=== PATIENT | female | born 1965 | race Caucasian/White ===

== ENCOUNTER 2016-12-15 13:53 | Inpatient (IN) | payer OTHER ==
[~2016-12-15] VITALS: Ht 175.3 cm; Wt 104.5 kg
[~2016-12-15 13:53] MED LIST: ALBU18HF INH; DEP500A PO; FLUT1DIS5 IH; FLUT1DIS5 ORAL; HYDR50CA3 PO; LEVO750T9 PO; PRE20 PO; QUET100T69 PO; ZLP5T PO
[2016-12-15 14:01] VITALS: BP 131/86; PULSE 88; RESP 18; O2SAT 95
--- NOTE | 2016-12-15 15:23 | ED.REPORT ---
HPI-Psychiatric Illness Date of Service Dec 15, 2016 ED Provider: Edgar Bethea MD Pt is a 51 y/o female with a history of PTSD, anxiety, depression, and a panic disorder who presents to the ED with erratic behavior. Per pt's , she has been sporadic today but has been able to talk occasionally to him. He also states that she had an episode of incontinence, after which she was able to shower after he instructed her to. After she had gotten dressed, she kept trying to leave the house but would then come right back in. The patient nods yes when asked if she is experiencing auditory and visual hallucinations. She also nods yes when asked if the voices are telling her to hurt herself and that she is afraid she will do what the voices are telling her. Pt told her to leave the house and recently told her brother that "something is coming". Last week, she told her that she was "going to hell" and would be "dismembered" but did not tell him by who. He states that most of her hallucinations are "congregational". She had previously been to the [facility] for 10 days for sensations on her body and auditory hallucinations. After being admitted, the pt was doing better, but went back into an altered mental state after being discharged. Pt's states that citalopram seems to work the best, and that her counselor stopped all other medications for her 3-4 months ago because they turn her into a "zombie". Nursing Notes Stated Complaint: MENTAL HEALTH Chief Complaint: Psychiatric Complaint Nursing Notes Reviewed: Yes Allergies: Coded Allergies: Macrolide Antibiotics (Verified Allergy, Unknown, 04/15/16) Penicillins (Verified Allergy, Unknown, 04/15/16) erythromycin base (Verified Allergy, Unknown, 04/15/16) Scheduled Divalproex DR (Depakote ) 500 Mg Tablet 500 MG PO BID Fluticasone/Salmeterol (Advair 500-50 Diskus) 1 Each Disk.w.dev 1 PUFF ORAL BID Fluticasone/Salmeterol (Advair 500-50 Diskus) 1 Each Disk.w.dev 1 PUFF IH BID Levofloxacin (Levaquin) 750 Mg Tablet 750 MG PO DAILY Prednisone (PredniSONE) 20 Mg Tablet 40 MG PO DAILY Prednisone (PredniSONE) 20 Mg Tablet 60 MG PO DAILY Quetiapine Fumarate (Quetiapine Fumarate) 100 Mg Tablet 200 MG PO DAILY Quetiapine Fumarate (Quetiapine Fumarate) 100 Mg Tablet 400 MG PO HS Scheduled PRN Albuterol Sulfate (Ventolin HFA Inhaler) 200 Puff/18 Gm Inhaler 1 PUFF INH Q4 PRN PRN For Wheezing Hydroxyzine Pamoate (HydrOXYzine Pamoate) 50 Mg Capsule 50 MG PO HS PRN PRN For Insomnia Zolpidem (Ambien) 5 Mg Tablet 5 MG PO HS PRN PRN Insomnia General Time Seen by MD: 15:22 Chief Complaint Other (erratic behavior) Hx Obtained From: Patient, Spouse Arrived By: Walk-in Onset Occurred: 5 - 8 hours ago Severity: Current: No pain currently Severity: Maximum: No pain Recent Healthcare: No recent hospitalization Similar Sx Previous: Yes Risk-Psychiatric Illness Suicide Risk Stratification RF Statements: Risk factors reviewed Past Medical History Past Medical History Anxiety - history of tactile hallucinations Panic disorder PTSD Reports: Asthma Reports: Depression Past Surgical History Bilateral carpel tunnel surgeries Exploratory laparotomy Family History Noncontributory Smoking History Former Smoker Social History Alcohol Use: Denies alcohol use Drug Use: Denies drug use Other Social History: Good social support, , Local resident Occupation Patient is no longer employed and spends a lot of her time volunteering. Ambulatory Status Independent Review of Systems Review of Systems Note: limited ROS due to patient's condition (would not verbalized answers) Psychiatric: Reports: Hallucinations, auditory, Hallucinations, visual, Suicidal ideation (no attempts) Complete sys rev & neg: except as marked. Physical Exam Initial Vital Signs Vital Signs (First) Date Time Temp Pulse Resp B/P Pulse Ox O2 Delivery O2 Flow Rate FiO2 12/15/16 14:01 36.8 88 18 131/86 95 Room Air Initial VS: Reviewed, Unavailable Extremities: Vascular intact, Neuro intact, No swelling, No tenderness Skin: Warm, Dry, No cyanosis General/Constitutional: Awake Neurologic: Oriented X3, No motor deficits Abnormal Mood/Affect: Positive: Flat affect Abnormal Thinking / Perception: Positive: Hallucinations, auditory, Hallucinations, visual No verbal responses, tracking with eyes Nods head for yes Respiratory / Chest: Breath sounds NL, Breath sounds = bilat, No respiratory distress Cardiovascular: Heart rate NL, Regular rhythm, Heart sounds NL, No murmurs Interpretation & Diagnostics Lab Results Interpretation Result Diagram: 12/15/16 1621 12/15/16 1621 Test 12/15/16 16:21 12/15/16 17:25 White Blood Count 12.8th/mm3 (3.8-10.1) Red Blood Count 5.05mil/mm3 (3.90-5.20) Hemoglobin 15.4g/dL (12.0-15.6) Hematocrit 45.7% (35.0-46.0) Mean Corpuscular Volume 90.5fL (81-100) Mean Corpuscular Hemoglobin 30.5pg (27.0-35.0) Mean Corpuscular Hemoglobin Concent 33.7% (32.0-37.0) Red Cell Distribution Width 13.0% (12.3-15.4) Platelet Count 220bil/L (150-400) Neutrophils (%) (Auto) 64.6% (40-74) Lymphocytes (%) (Auto) 24.1% (14-46) Monocytes (%) (Auto) 9.1% (4-12) Eosinophils (%) (Auto) 1.3% (0-5) Basophils (%) (Auto) 0.4% (0-3) Sodium Level 135mEq/L (134-144) Potassium Level 4.0mEq/L (3.5-5.2) Chloride Level 100mEq/L (97-108) Carbon Dioxide Level 21mmol/L (18-29) Blood Urea Nitrogen 17mg/dL (6-24) Creatinine 0.56mg/dL (0.57-1.00) Estimat Glomerular Filtration Rate 163mL/min (>59) Glucose Level 111mg/dL (60-99) Calcium Level 9.0mg/dL (8.5-10.1) Total Bilirubin 1.0mg/dL (0.0-1.2) Aspartate Amino Transf (AST/SGOT) 15U/L (0-50) Alanine Aminotransferase (ALT/SGPT) 12U/L (0-32) Alkaline Phosphatase 60U/L (25-150) Total Protein 7.4g/dL (6.4-8.4) Albumin 4.1g/dL (3.4-5.0) Thyroid Stimulating Hormone (TSH) 2.410uIU/mL (0.450-4.500) Hold Live Top Tube Received (Received) Hold Urine Received (Received) Re-Eval/Medical Decision Med Decision/Clinical Course 51 yo f h/o mood disorder psychotic features presenting with worsening psychosis over the last couple weeks per her . She has auditory hallucinations which are command which she reports are scary. She believes they may telling her to hurt herself. She is off her antipsychotics last couple of months per her psychiatric nurse. She is only on citalopram. On exam she is nonverbal but responds with nodding her head yes and no. highway worker evaluating. Care transferred to Dr. Kofi Pollock pending disposition. Source of Hx: Old records Re-Evaluation/Progress : Time of Eval: 17:52 Re-Evaluation/Progress Note: Plan for social media director to talk to patient. Discharge & Departure Shift Change Sign-Out Patient Care Transferred: Yes Discussed Complaint(s): Yes Impression: Primary Impression: Severe mood disorder with psychotic features Discharge Condition All VS Reviewed: Yes Condition: Stable Referrals: Dougie Tse MD (PCP) Care Transferred to: Dr. Pollock Care Transferred at: 18:00 Scribe Attestation Portions of this note were transcribed by Marcie Heath and Olga Vasquez. I, Dr. Bethea, personally performed the history, physical exam and medical decision-making; I reviewed and confirmed the accuracy of the information in the transcribed note. copies to: Dougie Tse MD, Ben M MD Dec 15, 2016 15:23 Marcie Heath Dec 15, 2016 15:45 Sosa Vasquez Dec 15, 2016 16:31
[2016-12-15 16:36] LABS: BASOPHILS % (AUTO) 0.4 % (0-3); EOSINOPHILS % (AUTO) 1.3 % (0-5); MONOCYTES % (AUTO) 9.1 % (4-12); Mean Corpuscular Hemoglobin 30.5 pg (27.0-35.0); Mean Corpuscular Volume 90.5 fL (81-100); NEUTROPHILS % (AUTO) 64.6 % (40-74); Platelet Count 220 bil/L (150-400)
[2016-12-15 19:23] VITALS: BP 129/86; PULSE 77; RESP 18; O2SAT 98
[2016-12-16 01:24] VITALS: BP 115/74; PULSE 87; RESP 18; O2SAT 95
[2016-12-16 09:08] VITALS: BP 122/81; PULSE 84; RESP 18; O2SAT 96
[2016-12-16 12:39] VITALS: BP 118/73; PULSE 68; RESP 18; O2SAT 95
--- NOTE | 2016-12-16 16:34 | NUR ---
Admit note. 51 y.o. female pt with dx of psychosis, admitted to the [facility] from [facility] ED at 1505. Pt was evaluated in ED and not detainable and pt's voluntary hospitalization authorized with HMA by [facility]. Pt reports that medication received from this unit during last hosp. here in March did not alleviate symptoms of being occupied by a negatively commanding entity ,but px has increased with med reduction in last few weeks and worsened to bizarre behaviour in reponse to internal stim in last five days. Pt states she initially had intrusive thoughts and heard random words that progressed into feeling that she is possessed by supernatural being that is telling her "icky things", and commanding re christianity, sexual, and homocidal instructions also threatening her if she does not carry out instrucs. Pt also reports visual hallucinations and nightmares of torture chambers, hellfire and dismembered limbs. On admit pt reporting that meds prev. prescribed made her feel as if she "couldn't think,sleep, felt like zombie" Pt pressured, anxious, seeking help, some insight re symptoms, discouraged re. med efficacy. P:CNCP
--- NOTE | 2016-12-16 18:41 | NUR ---
S Day Shift Pt admitted to the unit at approx 15:05. Pt cooperative with the admission process, but vocalizes her dissatisfaction with her bring admitted to the unit. Pt spends most of the shift watching TV/interacting with peers in the dining room, and resting/sleeping in her room. Pt is pleasant with staff and peers when active on the unit. Pt has not attended any meals at this time.
--- NOTE | 2016-12-17 04:53 | NUR ---
Nursing Noc Pt presents in common area working on puzzle or interacting with other patients and having snacks. Taking medication as prescribed. Noted to sleep thorughout the night without interruption. Continuing to monitor mood/behavior, emotional state and medication effectiveness. Q15 minute safety checks throughout the night. CP
[2016-12-17 14:54] VITALS: BP 131/83; PULSE 97; RESP 22
--- NOTE | 2016-12-17 15:32 | PCM.CHPPSY ---
Mental Health [facility] Date of Service Dec 17, 2016 Admission Date/Time Dec 16, 2016 at 15:27 Admission Status: Voluntary Primary Physician Attending Physician: Jay Farias MD Other Physician: Source of Information: Patient Interview, Chart Review Referral Agency/Hospital [facility] emergency department Chief Complaint Chief Complaint Patient is a 51-year-old female presented to the ED on 08/15/2016 by her who reported that patient has been acting erratically, having active auditory hallucination, no eye contact, flat affect. Patient presents today for evaluation and treatment of psychotic symptoms. The condition is acute, developing over the past 10 days and is at present of a moderate to severe intensity. It manifests with symptoms of ", anxiety, and auditory hallucination. Patient states an overwhelming force dwelling inside her body and communicating with her. Voice appears malignant "told me not to speak and get out of the hospital". Patient additionally has recurrent thoughts of the F word, unable to not think about the word. She has been resisting to the voices in favor of her . He told her not to listen to the voices. Patient reports that she loves her . Patient state that she was raised up as a Orthodox/Jainism family however, believe that she is in a dark place at current time. She states a dark force has reside in her for the past 7 years after she started to masturbate with an massager. This is recognizes as a sin. She carries a psychological history that includes anxiety, depression and bipolar with one episode of diego plus psychotic features back in 03/12/2016 for 10 days. Patient was discharged home on Depakote 500 mg by BID and Seroquel 200 mg in a.m. and 400 mg in the p.m. Since that time, patient was transitioned to citalopram 40 mg daily, discontinuing all of her other medication 3-4 months ago per report. Patient endorses she has not taken her medication for the past 10 days. I met with the patient for greater than 45 minutes; review the course records [facility]. Circumstances leading to admission (include presenting symptoms, severity, timing/onset) MH Presenting Symptoms: Psychosis (Days), Dementia (Days) Past Medical History Pulmonary: Asthma, Other (obstructive sleep apnea) Other Pertinent History: Obese BMI 34 Allergies Coded Allergies: Macrolide Antibiotics (Verified Allergy, Unknown, 04/15/16) Penicillins (Verified Allergy, Unknown, 04/15/16) erythromycin base (Verified Allergy, Unknown, 04/15/16) Home Medications Scheduled Divalproex DR (Depakote ) 500 Mg Tablet 500 MG PO BID Fluticasone/Salmeterol (Advair 500-50 Diskus) 1 Each Disk.w.dev 1 PUFF ORAL BID (Reported) Fluticasone/Salmeterol (Advair 500-50 Diskus) 1 Each Disk.w.dev 1 PUFF IH BID Levofloxacin (Levaquin) 750 Mg Tablet 750 MG PO DAILY Prednisone (PredniSONE) 20 Mg Tablet 40 MG PO DAILY Prednisone (PredniSONE) 20 Mg Tablet 60 MG PO DAILY Quetiapine Fumarate (Quetiapine Fumarate) 100 Mg Tablet 200 MG PO DAILY Quetiapine Fumarate (Quetiapine Fumarate) 100 Mg Tablet 400 MG PO HS Scheduled PRN Albuterol Sulfate (Ventolin HFA Inhaler) 200 Puff/18 Gm Inhaler 1 PUFF INH Q4 PRN PRN For Wheezing (Reported) Hydroxyzine Pamoate (HydrOXYzine Pamoate) 50 Mg Capsule 50 MG PO HS PRN PRN For Insomnia Zolpidem (Ambien) 5 Mg Tablet 5 MG PO HS PRN PRN Insomnia Psychiatric Treatment History Age at onset: Estimated number of hospitalizations since onset of illness: What medications/treatments have been effective: What medications/treatments have been ineffective: Outpatient Treatment History: Psychological History: Bipolar Fam Hx Mental Health Disorder: None Past Suicide Attempts MH Past Suicide Attempts: Yes Relevant History Relevant Details: Age of First Attempt: Number of Attempts: Date of Last Attempt: Hx non-suicidal Self-Injury Hx non-suicidal Self-Injury?: No Relevant History Relevant History Details: Hx Violence Towards Other Hx violence towards others?: No Past Medical History Past Medical/Surgical History Current and Past Current/Past: none reported Problem with Elimination: No Currently ?: No Hx Surgeries: Yes (BILATERAL CARPAL TUNNEL, EXPLORATORY LAP) Past Surgical History: None Family History: None Fam Hx Mental Health Disorder: None Past Social History Family: Living Arrangement: with Family Patient Education Level: 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 Dyspnea Respiratory: Reports: Wheezing, Denies: Cough, Shortness of Breath Gastrointestinal: Denies: Abdominal Pain, Nausea, Vomiting Musculoskeletal: Denies: Limitation of Function, Neck Pain Skin: Denies: Bruising, Jaundice, Rash Neurological: Denies: Dyskinesia, Seizures, Tremors, Weakness Psychologic: Denies: Agitation, Hostile, Diego, Nervousness Endocrine: Denies: Intolerent to Heat/Cold, Polydipsea, Polyuria Mental Status Exam Vital Signs Vital Signs Date Time Temp Pulse Resp B/P Pulse Ox O2 Delivery O2 Flow Rate FiO2 12/17/16 14:54 36.8 97 22 131/83 Appearance: Neat/well groomed Attitude: Cooperative Behavior: Overtly anxious Affect: Restricted Mood: Dysthymic, Fearful Thought Process/Associations: Loose, Tangential Speech Production: Normal Speech Rate: Normal Speech Articulation: Normal Thought Content: Hinduism preoccupation, Perseveration, Other (disorganized) Danger to Self/Suicidal Ideati: None Danger to Others: None Hallucinations: Auditory (Endorses, being communicating with her), Visual ( Denies) Consciousness: Alert Orientation: Person, Place, Date, Situation Memory: Grossly Intact Estimate Intellectual Function: Average Attention/Concentration & Cogn: Grossly Intact Insight: Limited Judgement: Limited Result Diagram: 12/15/16 1621 12/15/16 1621 Mental Health Plan Patient is a 51-year-old female with a medical history significant for anxiety, depression, and bipolar voluntary admission for diego with psychotic symptoms. Patient has decompensated for the past 10 days noncompliant to her medication. She has significant auditory hallucination with adventism preoccupation. She likely has an incongruent in her belief system and very poor coping skills which resulted in extreme fear and thought disorganization. Her life is negatively affected, psychological paralysis. For treatment of psychosis, patient refuses to take Seroquel she believes it causes significant drowsiness. The team therefore, we will place her on Abilify 10 mg augmented by citalopram 20 mg and consider adding Depakote 250 mg twice a day. [place] AXIS I Probable bipolar disorder, most recent episode manic with psychotic features AXIS II Deferred. AXIS III History of bilateral carpal tunnel repair. Asthma Obstructive sleep apnea AXIS IV Stressors moderate AXIS V Global Assessment of Functioning current 35 Medications Medications to address General Physical Health Citalopram 20 mg daily Abilify 10 mg dailymg Treatments 1. The patient is admitted to the [facility] on an voluntary basis. 2. Will provide a structure environment to facilitate psychological healing 3. The patient will be seen by the treatment team on a daily basis to assess for symptom side effects and response to treatment. 4. The patient will be encouraged to attend group and milieu activities. 5. Abilify 10 mg daily in addition to citalopram 20 mg daily 6. Anticipate length of stay less than 14 days Jesus Valentine DO Dec 17, 2016 15:32
--- NOTE | 2016-12-17 16:29 | NUR ---
[id number]. S: "I just want to be Rose, and get rid of this weird....they are able to get into the computer and change the information..I need to get the records of what I say because don't want to take medication that will make worse O: Pt requesting records of her tx and details of info she has provided for her MR. because she is concerned about having poor memory and states that the "evil entity/s that have being trying to control her and turn her into a bad person "I am a kind and good person" have the ability to hack into her computer info and change it. Pt noted to be placing a lot of significance on what appeared to be neutral stimuli and perseverating on the meaning of her interpretation part of the "weirdness that she is experiencing. Pt stating that celexa helps her because it keeps her more even and peaceful and stops her from getting agitated, pt states that she is concerned about being on large doses of other meds. . Pt trying to stay calm, but struggling with her concerns, pt reports that she has bruises that she cannot account for and feels that she received them from entity possibly. P:CNCP
--- NOTE | 2016-12-18 05:08 | NUR ---
nursing, nights, 11-7 s/o- has appeared to sleep after 2300 during q 15 minute assessments. a- no apparent distress. p- monitor behavior/emotional state, quality, times and amount of sleep, use and effect of medication. avani
[2016-12-18] MEDS: ARIPiprazole 10 mg Tablet PO SCH (08:30)
[2016-12-18] MEDS: Albuterol HFA 200 Puff Inhaler (Vent Pts Only) INHALATION PRN ×2 (08:59→18:14)
--- NOTE | 2016-12-18 09:32 | NUR ---
Nursing Day Pt refused her morning dose of Abilify stating "Why are they starting me on that. No one talked to me. I want to be careful about my meds. I don't want to take anything I was on before except Citalopram." Pt ate breakfast and is quietly resting in her bed she reports feeling "Fine. Thoughts pop into my but I am just trying to ignore them." Blunt affect, bizarre thoughts, appropriate behavior, responsive to staff upon approach. Continue to monitor behavior, thought process and mood.
[2016-12-18 10:18] VITALS: BP 118/71; PULSE 75; RESP 18
--- NOTE | 2016-12-18 11:54 | PCM.PNPSY ---
Subjective Date of Service Dec 18, 2016 Subjective I spent 30 minutes both revealing treatments upon with our clinic team, interviewing the patient and providing supportive/educational psychotherapy. I spent more than 50% of the time counseling the patient. I reviewed the treatment plan with the patient and discuss options available including the potential risks, benefits and side effects. Pt reports an improvement and thought organization and mood stability. Staff reports that she has been active, isolating and participating well in one-to- one and group activities. She slept 7.5hours and denies depression, manic symptoms review. Pt still admits an evil present in her body, communicating bad thoughts. In the past, patient reports that the entity told her not to communicate with humans. She denies medication side effects. She was able to identify his/her medication and what they were used to treat. Current Medications Current Medications Albuterol 2 puff Q4H PRN INHALATION Last administered on 12/18/16 08:59; Admin Dose 2 PUFF; Start 12/16/16 at 20:30 Citalopram Hydrobromide 20 mg DAILY PO Last administered on 12/18/16 08:56; Admin Dose 20 MG; Start 12/18/16 at 08:30 Citalopram Hydrobromide 40 mg DAILY PO Last administered on 12/17/16 08:09; Admin Dose 40 MG; Start 12/17/16 at 08:30; Stop 12/17/16 at 12:06; Status DC Zolpidem Tartrate 5-10 MG HS PRN PO Last administered on 12/17/16 21:32; Admin Dose 5 MG; Start 12/16/16 at 20:30 Mental Status Exam Appearance: Neat/well groomed Attitude: Cooperative Behavior: Overtly anxious Affect: Restricted Mood: Dysthymic, Fearful Thought Process/Associations: Loose, Tangential Speech Production: Normal Speech Rate: Normal Speech Articulation: Normal Thought Content: Samaritan preoccupation, Perseveration, Other Danger to Self/Suicidal Ideati: None Danger to Others: None Hallucinations: Auditory (Endorses), Visual (Denies), Tactile (Denies) Consciousness: Alert Orientation: Person, Place, Date, Situation Memory: Grossly Intact Estimate Intellectual Function: Average Attention/Concentration & Cogn: Grossly Intact Insight: Limited Judgement: Limited Result Diagram: 12/15/16 1621 12/15/16 1621 Mental Health Plan Patient is a 51-year-old female with a medical history significant for anxiety, depression, and bipolar here on a voluntary basis for diego with psychotic symptoms. Patient has decompensated for the past several days and noncompliant to her medication. She has significant auditory hallucination with congregation preoccupation. She likely has an incongruent in her belief system and very poor coping skills which resulted in extreme fear and thought disorganization. Her life is negatively affected, psychological paralysis. For treatment of psychosis, patient refuses to take Seroquel she believes it causes significant drowsiness. The team therefore, we will place her on Abilify 10 mg augmented by citalopram 20 mg and consider adding Depakote 250 mg twice a day. [place] AXIS I Probable bipolar disorder, most recent episode manic with psychotic features AXIS II Deferred. AXIS III History of bilateral carpal tunnel repair. Asthma Obstructive sleep apnea AXIS IV Stressors moderate AXIS V Global Assessment of Functioning current 35 Medications Medications to address General Physical Health Citalopram 20 mg daily Abilify 10 mg dailymg Treatments 1. The patient is admitted to the [facility] on an voluntary basis. 2. Will provide a structure environment to facilitate psychological healing 3. The patient will be seen by the treatment team on a daily basis to assess for symptom side effects and response to treatment. 4. The patient will be encouraged to attend group and milieu activities. 5. Abilify 10 mg daily in addition to citalopram 20 mg daily 6. Anticipate length of stay less than 14 days 7. CPAP for HALLIE Attending Statement I reviewed the case with and interviewed the patient and reviewed the chart records. I agree with Dr. Valentine assessment and plan for treatment. Jesus Valentine DO Dec 18, 2016 11:54 Jay Farias MD Dec 18, 2016 12:26
--- NOTE | 2016-12-18 19:10 | NUR ---
Plasterer Foreman/Counselor: S: "I cried out to God because I did something to my body and I don't want to discuss it." O: Patient slept 7 hours last night per staff. Patient denies S/I and H/I. She also denies auditory and visual hallucinations. Depression and anxiety were not rated. When asked her mood, patient stated, "Peaceful." A: Patient is cooperative, anxious, mu-ism preoccupation, fearful, loose, tangential, dysthymic, limited insight, limited judgment. P: Follow the care plan, coordinate with out-patient providers. Addendum: 12/18/16 at 192 by [facility] Patient also stated, "Something is calling me names within my being. Nobody is perfect and if your own being tells you that you are a loser, it's bad."
--- NOTE | 2016-12-18 20:54 | NUR ---
Observations 899 - 2129 Pt affect and mood was flat, anxious, isolative and times and religiously preoccupied. Pt was able to maintain behavior throughout the shift. Pt speech and eye contact was good. Pt was a little restless today. Pt attended meals in D.R. and ate about 75% of her meals. Pt attended arts and crafts and other unit activities. Pt was observed every 15 minutes through the shift as ordered. Addendum: 12/18/16 at 2100 by RGEG [facility] Pt visited with her during visitation time and it appeared to go well.
[2016-12-19] MEDS: Albuterol HFA 200 Puff Inhaler (Vent Pts Only) INHALATION PRN ×2 (00:40→09:53)
--- NOTE | 2016-12-19 06:14 | NUR ---
Nursing Note- Layboy Operator 7pm to 7am Pt watching tv in the day room at start of shift. Interacting appropriately with select peers. Eye contact fair, able to make needs known, thoughts appear linear and logical, guarded at times, endorses AH, but but reports she is managing them better. Pt went to bed at 2200, after getting ambien 5mg for sleep. Pt slept 6.5 hours. Monitored pt. q 15 minutes for safety, location, and accountability
[2016-12-19] MEDS: ARIPiprazole 10 mg Tablet PO SCH (09:02)
--- NOTE | 2016-12-19 10:33 | NUR ---
Day shift nursing note-Sleep/Appetite/Anxiety/Psychosis S/O-Pt. reported she slept well through the night. She denies SI, HI, depression, anxiety or hallucinations. She stated she feels frustrated about all the weird things that have happened but denies having weird thoughts. She tends to stay to herself on the unit. She has good appetite and is appropriate with peers and staff. She was sleepy in the morning so she ate a late breakfast. A-Psychosis. Lack of insight. Guarded, Preoccupied. P-Monitor for safety per protocol. Encourage verbalization of feelings and thoughts. Assess efficacy of meds to decrease PI.
[2016-12-19 12:50] VITALS: BP 120/76; PULSE 83; RESP 16
--- NOTE | 2016-12-19 14:54 | NUR ---
Observations 0700 - 1900 Pt affect and mood anxious, isolative, flat and withdrawn. Pt is minimally social with staff and peers. Pt was able to maintain behavior throughout the shift. Pt speech and eye contact was good. Pt attended meals in D.R. and ate about 75% of her meals. Pt is currently resting in bed with eyes closed. Pt was observed every 15 minutes through the shift as ordered.
[2016-12-19] MEDS: Fluticasone-Salmeterol 500-50 Inhaler INHALATION SCH (21:09)
[2016-12-20] MEDS: Fluticasone-Salmeterol 500-50 Inhaler INHALATION SCH ×2 (09:39→20:28)
[2016-12-20 11:30] VITALS: BP 124/79; PULSE 91; RESP 17
--- NOTE | 2016-12-20 16:54 | NUR ---
Observations 9300-7451 Pt quiet, isolative much of the day, and cooperative. Pt focused on discharge, making a comment to this television writer saying "I am not happy I am here, it's easy to get upset about it but I'm trying to stay positive. Sometimes I just like getting angry about things." Pt slept much of the morning, waking up late. Attended all meals along with Community Meeting. Pt did participate in group, coloring. She slept much of the afternoon. Good with ADLs. Pt was observed every 15 minutes of shift as directed.
[2016-12-20] MEDS: Albuterol HFA 200 Puff Inhaler (Vent Pts Only) INHALATION PRN (18:06)
--- NOTE | 2016-12-20 19:24 | PCM.PNPSY ---
Subjective Date of Service Dec 19, 2016 Subjective The patient reported that she has not felt good during her prior hospitalization but upon discharge and soon thereafter she stated "I turned into a zombie. My mind was clear that I was lethargic." She reported that she feels "pretty decent now" and stated that she was still having "good and bad sensations in a particular apartment." She did not want to go more into detail as she was concerned that unusual thoughts would be used against her. She did however reports that her thinking was "askew." She went on to state that she believed all of her problems were due to a demonic attack 5-6 years ago and that she had seen "swirly things bouncing on my legs." She denied experiencing those things now. Sleep: 6.25 hours Appetite: "Okay" Suicidal and homicidal ideation: Denies Auditory hallucinations: Denies Visual hallucinations: Denies Other Psychotic Symptoms: Paranoia and as above. Anxiety: Denies Depression: Denies Current Medications Current Medications Aripiprazole 5 mg ONCE ONCE PO Last administered on 12/19/16 14:00; Admin Dose 5 MG; Start 12/19/16 at 13:00; Stop 12/19/16 at 13:04; Status DC Aripiprazole 10 mg DAILY PO Last administered on 12/19/16 09:02; Admin Dose 10 MG; Start 12/18/16 at 08:30; Stop 12/19/16 at 13:00; Status DC Citalopram Hydrobromide 20 mg DAILY PO Last administered on 12/19/16 09:02; Admin Dose 20 MG; Start 12/18/16 at 08:30 Mental Status Exam Vital Signs Vital Signs Date Time Temp Pulse Resp B/P Pulse Ox O2 Delivery O2 Flow Rate FiO2 12/19/16 12:50 36.4 83 16 120/76 Appearance: Neat/well groomed Attitude: Cooperative Behavior: Overtly anxious Affect: Restricted Mood: Dysthymic, Fearful Thought Process/Associations: Loose, Tangential Speech Production: Normal Speech Rate: Normal Speech Articulation: Normal Thought Content: Faith preoccupation, Suspicious, Perseveration, Other Danger to Self/Suicidal Ideati: None Danger to Others: None Hallucinations: Auditory (Denies), Visual (Denies), Tactile (Denies) Consciousness: Alert Orientation: Person, Place, Date, Situation Memory: Grossly Intact Estimate Intellectual Function: Average Attention/Concentration & Cogn: Grossly Intact Insight: Limited Judgement: Limited Result Diagram: 12/15/16 1621 12/15/16 1621 Mental Health Plan Patient is a 51-year-old female with a medical history significant for anxiety, depression, and bipolar here on a voluntary basis for diego with psychotic symptoms. Patient has decompensated for the past several days and has been noncompliant with her medication. She has had recent, significant auditory hallucination with bahai preoccupation. The patient also has limited coping skills and coupled with her thought disorganization led to medication nonadherence. The patient reported that she had significant drowsiness from quetiapine and did not wish to restart this. When it was discussed that the team and previously try to reduce the dose of quetiapine she denied this. The patient was therefore placed on aripiprazole 10 mg daily with citalopram 20 mg daily with consideration of Depakote 250 mg twice daily for mood. The patient is still exhibiting significant thought disorganization and is concerned about her prolonged hospital stay. We therefore discussed increasing the aripiprazole which the patient was agreeable. [place] AXIS I Bipolar disorder, most recent episode manic with psychotic features versus schizoaffective disorder bipolar type AXIS II Deferred. AXIS III History of bilateral carpal tunnel repair. Asthma Obstructive sleep apnea AXIS IV Stressors moderate AXIS V Global Assessment of Functioning current 35 Medications Citalopram 20 mg daily Abilify 15 mg daily Treatments 1. The patient is admitted to the inpatient unit and will be provided a safe and secure environment. 2. The patient is denying current active suicidality and is not in need of a one-to-one at this time. 3. The patient is encouraged to participate with group and milieu activities. 4. The patient will be seen by the treatment team on a daily basis to assess symptoms, side effects and response to treatment. 5. The patient will be continued on as citalopram 20 mg daily for depression. 6. Abilify will be increased to 15mg daily for psychosis. 7. CPAP for AHLLIE 8. Anticipated length of stay is 10-14 days. Vasile June MD Dec 19, 2016 19:16
--- NOTE | 2016-12-20 19:27 | PCM.PNPSY ---
Subjective Date of Service Dec 20, 2016 Subjective The patient reports that her thinking is "decent". She reports that she feels that the increase in medication was "helpful". The patient was up and alert through lunch and then felt tired and stated that she wanted to take a nap. She is concerned she may have some drowsiness from aripiprazole. We discussed that if she has ongoing drowsiness tomorrow morning that moving it to bedtime may be beneficial. She also stated that she would discuss with her her progress and whether he felt she was appropriate to return home. Sleep: 6.5 hours, "really well." Appetite: "Good" Suicidal and homicidal ideation: Denies Auditory hallucinations: Denies Visual hallucinations: Denies Other Psychotic Symptoms: Mild paranoia Anxiety: Denies Depression: Denies Current Medications Current Medications Aripiprazole 5 mg ONCE ONCE PO Last administered on 12/19/16 14:00; Admin Dose 5 MG; Start 12/19/16 at 13:00; Stop 12/19/16 at 13:04; Status DC Aripiprazole 15 mg DAILY PO Last administered on 12/20/16 09:39; Admin Dose 15 MG; Start 12/20/16 at 08:30 Salmeterol Xinafoate/ Fluticasone 2 puff BID INHALATION Last administered on 09:39; Admin Dose 2 PUFF; Start 12/19/16 at 20:30 Mental Status Exam Vital Signs Vital Signs Date Time Temp Pulse Resp B/P Pulse Ox O2 Delivery O2 Flow Rate FiO2 12/20/16 11:30 36.1 91 17 124/79 Appearance: Neat/well groomed Attitude: Cooperative Behavior: Overtly anxious Affect: Restricted Mood: Dysthymic, Fearful Thought Process/Associations: Goal Directed Speech Production: Normal Speech Rate: Normal Speech Articulation: Normal Thought Content: Suspicious (mild) Danger to Self/Suicidal Ideati: None Danger to Others: None Hallucinations: Auditory (Denies), Visual (Denies) Consciousness: Alert Orientation: Person, Place, Date, Situation Memory: Grossly Intact Estimate Intellectual Function: Average Attention/Concentration & Cogn: Grossly Intact Insight: Limited Judgement: Limited Result Diagram: 12/15/16 1621 12/15/16 1621 Mental Health Plan Patient is a 51-year-old female with a medical history significant for anxiety, depression, and bipolar here on a voluntary basis for diego with psychotic symptoms. Patient has decompensated for the past several days and has been noncompliant with her medication. She has had recent, significant auditory hallucination with yazidi preoccupation. The patient also has limited coping skills and coupled with her thought disorganization led to medication nonadherence. The patient reported that she had significant drowsiness from quetiapine and did not wish to restart this. When it was discussed that the team and previously try to reduce the dose of quetiapine she denied this. The patient was therefore placed on aripiprazole 10 mg daily with citalopram 20 mg daily with consideration of Depakote 250 mg twice daily for mood. The patient is still exhibiting significant thought disorganization and is concerned about her prolonged hospital stay. We therefore discussed increasing the aripiprazole which the patient was agreeable. The patient appears to improved with the increase in aripiprazole although there may be some drowsiness associated with daytime dosing. [place] AXIS I Bipolar disorder, most recent episode manic with psychotic features versus schizoaffective disorder bipolar type AXIS II Deferred. AXIS III History of bilateral carpal tunnel repair. Asthma Obstructive sleep apnea AXIS IV Stressors moderate AXIS V Global Assessment of Functioning current 35 Medications Citalopram 20 mg daily Abilify 15 mg daily Treatments 1. The patient is admitted to the inpatient unit and will be provided a safe and secure environment. 2. The patient is denying current active suicidality and is not in need of a one-to-one at this time. 3. The patient is encouraged to participate with group and milieu activities. 4. The patient will be seen by the treatment team on a daily basis to assess symptoms, side effects and response to treatment. 5. The patient will be continued on as citalopram 20 mg daily for depression. 6. Continue aripiprazole 15 mg daily and consider moving to bedtime. 7. CPAP for HALLIE 8. Anticipated length of stay is 10-14 days. Vasile June MD Dec 20, 2016 19:27
--- NOTE | 2016-12-21 05:30 | NUR ---
Nightshift Nurse Note 11pm to 7am: Pt was in bed at the beginning of the shift at 2300 and appeared to sleep through the night. Pt briefly woke at 0500 then went back to bed and appeared to be back to sleep by 0530. Pt monitored q 15 minutes for safety, location, and accountability.
[2016-12-21 08:15] VITALS: BP 103/69; PULSE 73; RESP 17
[2016-12-21] MEDS: Fluticasone-Salmeterol 500-50 Inhaler INHALATION SCH (08:44)
--- NOTE | 2016-12-21 12:52 | PCM.DIMED ---
Discharge Instructions Date of Service Dec 21, 2016 Dates of Hospitalization Dec 16, 2016 at 15:27 Discharge Diagnosis Discharge Diagnosis AXIS I Bipolar disorder, most recent episode manic with psychotic features versus schizoaffective disorder bipolar type AXIS II Deferred. AXIS III History of bilateral carpal tunnel repair. Asthma Obstructive sleep apnea AXIS IV Stressors moderate AXIS V Global Assessment of Functioning current 45 Diet Discharge Diet: No restrictions Activity Discharge Activity: No restrictions Patient Instructions Patient Instructions Should you have any thoughts of harming yourself or others, please call the crisis line, your provider, 911, or go to the nearest Emergency Department. Do not change or discontinue your medications without discussing with your provider. You have been given a prescription for 30 days supply of your new medication Follow-up plan Counselor Eliana 12/22/16 at 3pm [id number] [id number] Vasile June MD Dec 21, 2016 12:52
[2016-12-21] MEDS ORDERED: CITA20TA PO (13:08)
[2016-12-21] MEDS ORDERED: ZLP5T PO (13:08)
[2016-12-21] MEDS ORDERED: ARIP15TA2 PO (13:08)
--- NOTE | 2016-12-21 14:40 | NUR ---
nursing note dayshift S)"I am just frustrated but not mad, its just that something bad happened to me at home, I am scared that I am going to get locked up again" O) pt denies anxiety but reports she has trauma from being in seclusion down in ER and very worried about being locked up again, wants to take a shower but concerned about the door being shut " do you think staff can be right outside door?" social on unit, ate meals, states feels tired from her medications A) cooperative, social, denies anxiety or AH P) monitor medications effectiveness and encourage participation in treatment
--- NOTE | 2016-12-21 16:21 | NUR ---
Building Maintenance Technician/Counselor S:"I'm feeling just a little paranoid." O: Patient denies any SI or HI, no AVH, no anxiety or depression. A: Patient is being discharged today and has a follow up appt. with her Counselor at 3pm on 12/22/2016. Patient will be picked up by her , and will be provided with all necessary discharge paperwork as well as follow up instructions. P: Follow discharge plans.
--- NOTE | 2016-12-21 17:23 | PCM.DC.MED ---
Discharge Summary Date of Service Dec 21, 2016 Dates of Hospitalization Date of Hospital Admission Dec 16, 2016 at 15:27 Date of Discharge: Dec 21, 2016 Providers: Admitting Physician: Jay Farias MD Primary Care Physician: Dougie Tse MD Attending Physician: Jay Farias MD Diagnosis at Time of Discharge Diagnosis at Time of Discharge AXIS I Bipolar disorder, most recent episode manic with psychotic features versus schizoaffective disorder bipolar type AXIS II Deferred. AXIS III History of bilateral carpal tunnel repair. Asthma Obstructive sleep apnea AXIS IV Stressors moderate AXIS V Global Assessment of Functioning current [address] Fregoso's note from 12/17/16: Admission Date/Time Dec 16, 2016 at 15:27 Admission Status: Voluntary Primary Physician Attending Physician: Jay Farias MD Other Physician: Source of Information: Patient Interview, Chart Review Referral Agency/[facility] emergency department Chief Complaint Chief Complaint Patient is a 51-year-old female presented to the ED on 08/15/2016 by her who reported that patient has been acting erratically, having active auditory hallucination, no eye contact, flat affect. Patient presents today for evaluation and treatment of psychotic symptoms. The condition is acute, developing over the past 10 days and is at present of a moderate to severe intensity. It manifests with symptoms of ", anxiety, and auditory hallucination. Patient states an overwhelming force dwelling inside her body and communicating with her. Voice appears malignant "told me not to speak and get out of the hospital". Patient additionally has recurrent thoughts of the F word, unable to not think about the word. She has been resisting to the voices in favor of her . He told her not to listen to the voices. Patient reports that she loves her . Patient state that she was raised up as a Mandaen/Shinto family however, believe that she is in a dark place at current time. She states a dark force has reside in her for the past 7 years after she started to masturbate with an massager. This is recognizes as a sin. She carries a psychological history that includes anxiety, depression and bipolar with one episode of diego plus psychotic features back in 03/12/2016 for 10 days. Patient was discharged home on Depakote 500 mg by BID and Seroquel 200 mg in a.m. and 400 mg in the p.m. Since that time, patient was transitioned to citalopram 40 mg daily, discontinuing all of her other medication 3-4 months ago per report. Patient endorses she has not taken her medication for the past 10 days. I met with the patient for greater than 45 minutes; review the course records [facility]. Circumstances leading to admission (include presenting symptoms, severity, timing/onset) MH Presenting Symptoms: Psychosis (Days), Dementia (Days) Hospital Course The patient was admitted to unit and was switched from quetiapine and Depakote to aripiprazole and citalopram. Aripiprazole was increased to 15 mg daily the patient reported improvement in her perseverative symptoms. She did state that the night prior to discharge she had a good visit with her however later that evening the toilet was running and she believes that someone might be conspiring to cause her not to sleep. She was able to tell herself to ignore it and went to sleep. Today she is experiencing no hallucinations or paranoia. She is denying any side effects and reports feeling alert. At the time of discharge, the patient was reporting her mood as "feeling pretty good." Sleep was reported as "good," 6.75 hours per staff and and appetite was reported as "good." Her anxiety was reported as 0/10 and depression as 0/10. She denied auditory or visual hallucinations and any thought, intent or plan of hurting herself or others. Exam Vital Signs (Last) Date Time Temp Pulse Resp B/P Pulse Ox O2 Delivery O2 Flow Rate FiO2 12/21/16 08:15 36.2 73 17 103/69 12/16/16 12:39 95 Room Air Exam Mental Status Exam Appearance: Neat/well groomed Attitude: Cooperative Behavior: Overtly anxious Affect: Restricted Mood: Appropriate Thought Process/Associations: Goal Directed Speech Production: Normal Speech Rate: Normal Speech Articulation: Normal Thought Content: Suspicious (mild) Danger to Self/Suicidal Ideation: None Danger to Others: None Hallucinations: Auditory (Denies), Visual (Denies) Consciousness: Alert Orientation: Person, Place, Date, Situation Memory: Grossly Intact Estimate Intellectual Function: Average Attention/Concentration & Cognition: Grossly Intact Insight: Limited Judgement: Limited Test 12/15/16 16:21 12/15/16 17:25 12/18/16 06:00 White Blood Count 12.8th/mm3 (3.8-10.1) Red Blood Count 5.05mil/mm3 (3.90-5.20) Hemoglobin 15.4g/dL (12.0-15.6) Hematocrit 45.7% (35.0-46.0) Mean Corpuscular Volume 90.5fL (81-100) Mean Corpuscular Hemoglobin 30.5pg (27.0-35.0) Mean Corpuscular Hemoglobin Concent 33.7% (32.0-37.0) Red Cell Distribution Width 13.0% (12.3-15.4) Platelet Count 220bil/L (150-400) Neutrophils (%) (Auto) 64.6% (40-74) Lymphocytes (%) (Auto) 24.1% (14-46) Monocytes (%) (Auto) 9.1% (4-12) Eosinophils (%) (Auto) 1.3% (0-5) Basophils (%) (Auto) 0.4% (0-3) Sodium Level 135mEq/L (134-144) Potassium Level 4.0mEq/L (3.5-5.2) Chloride Level 100mEq/L (97-108) Carbon Dioxide Level 21mmol/L (18-29) Blood Urea Nitrogen 17mg/dL (6-24) Creatinine 0.56mg/dL (0.57-1.00) Estimat Glomerular Filtration Rate 163mL/min (>59) Glucose Level 111mg/dL (60-99) Calcium Level 9.0mg/dL (8.5-10.1) Total Bilirubin 1.0mg/dL (0.0-1.2) Aspartate Amino Transf (AST/SGOT) 15U/L (0-50) Alanine Aminotransferase (ALT/SGPT) 12U/L (0-32) Alkaline Phosphatase 60U/L (25-150) Total Protein 7.4g/dL (6.4-8.4) Albumin 4.1g/dL (3.4-5.0) Thyroid Stimulating Hormone (TSH) 2.410uIU/mL (0.450-4.500) Hold Live Top Tube Received (Received) Hold Urine Received (Received) Triglycerides Level 69mg/dL (0-149) Cholesterol Level 160mg/dL (100-199) LDL Cholesterol, Calculated 100.200mg/dL (0-99) VLDL Cholesterol 13.800mg/dL HDL Cholesterol 46mg/dL (>39) Cholesterol/HDL Ratio 3.48 (0.0-4.4) Discharge Medications Discharge Medications Aripiprazole (Abilify) 15 Mg Tablet 15 MG PO DAILY Prescribed by: TABBY JUNE MD Citalopram Hydrobromide (Celexa) 20 Mg Tablet 20 MG PO DAILY Prescribed by: TABBY JUNE MD Fluticasone/Salmeterol (Advair 500-50 Diskus) 1 Each Disk.w.dev 1 PUFF IH BID Prescribed by: DYLAN LOPEZ As needed Albuterol Sulfate (Ventolin HFA Inhaler) 200 Puff/18 Gm Inhaler 1 PUFF INH Q4 PRN PRN For Wheezing (Reported) Zolpidem (Ambien) 5 Mg Tablet 5 MG PO HS PRN PRN Insomnia Prescribed by: TABBY JUNE MD Followup Plan Disposition: The patient was requesting discharge and appeared relatively stable at this time. There is no grounds for referral to [facility] and she was released into the care of her friend to return home to live with her . The patient verbally consented to take the prescribed medications. The patient verbally expressed understanding of the risks, benefits, alternative treatment options, and risks of not taking the prescribed medication. The patient verbally expressed understanding of the medication instructions, that she will adhere to the prescribed medication, and that she will go to all aftercare scheduled appointments. Follow-up plan Counselor Eliana 12/22/16 at 3pm [id number] [place] [address] Discharge Diet: No restrictions Discharge Activity: No restrictions Patient Instructions Should you have any thoughts of harming yourself or others, please call the crisis line, your provider, 911, or go to the nearest Emergency Department. Do not change or discontinue your medications without discussing with your provider. You have been given a prescription for 30 days supply of your new medication Tabby June MD Dec 21, 2016 17:23
--- NOTE | 2016-12-21 18:20 | NUR ---
Discharge Patient ambulated from unit accompanied by spouse. Patient alert and oriented at time of discharge. Denies current suicidal thoughts or thoughts of self harm, depression, and hallucinations. Patient does have some mild anxiety 2/10. Patient endorsing positive thoughts with future reference and reports that she is looking forward to "going swimming again". Patient agrees to discharge plan and verbalized understanding of said plan. Prescriptions faxed to [facility] in [place].
--- NOTE | 2016-12-21 19:29 | NUR ---
Nurse Note Evening Shift 3pm to 11pm: Pt was showering at beginning of shift. She stated she was going home and felt much better after the shower. Pt spent time in the dayroom and group room with others. Pt stated she has a mental health counselor to talk to once discharged. Pt was discharged to home with at 1820. Pt monitored q 15 minutes for safety, location and accountability.
== END 2016-12-21 18:20 | disposition home or self-care (01) | DRG 885 ==
LOC: SED 13:53 → MHC 12-16 15:20
PROVIDERS: ADMIT Psychiatry & Neurology Psychiatry; ATTEND Psychiatry & Neurology Psychiatry
DX: F30.2 Manic episode, severe with psychotic symptoms (principal); J45.909 Unspecified asthma, uncomplicated; G47.33 Obstructive sleep apnea (adult) (pediatric); T42.6X6A Underdosing of other antiepileptic and sedative-hypnotic drugs, initial encounter; Z91.128 Patient's intentional underdosing of medication regimen for other reason; Z79.51 Long term (current) use of inhaled steroids